=== PATIENT | female | born 2000 | race Caucasian/White ===

== ENCOUNTER 2023-09-14 23:46 | Inpatient (IN) ==
[2023-09-15 00:28] LABS: Basophils # (auto) 0.04 K/uL (0.00-0.20); Basophils % (auto) 0.4 %; Hematocrit (blood only) 39.9 % (37.0-47.0); Hemoglobin 13.6 g/dl (12.0-16.0); Immature Granulocytes # (auto) 0.04 K/uL (0.01-0.20); Immature Granulocytes % (auto) 0.4 %; Lymphocytes % (auto) 17.2 %; Mean Corpuscular Hemoglobin 30.1 pg (25.0-34.0); Mean Corpuscular Hgb Conc 34.1 g/dL (32.0-36.0); Mean Corpuscular Volume 88.3 fL (80.0-100.0); Mean Platelet Volume 11.4 fL (9.4-12.4); Monocytes # (auto) 0.69 K/uL (0.11-0.59); Neutrophils # (auto) 7.41 K/uL (1.40-6.50); Platelet Count 205 K/uL (130-400); RDW Coefficient of Variation 12.9 % (11.5-14.5); RDW Standard Deviation 41.8 fL (36.4-46.3); Red Blood Count 4.52 M/uL (4.20-5.40); White Blood Count 9.88 K/ul (4.8-10.8)
[2023-09-15 00:34] LABS: Appearance Urine Cloudy (Clear); Bacteria Urine Automated 1+ (Negative); Bilirubin Urine Negative (Negative); Blood Urine Negative (Negative); Color Urine Dark Yellow; Epithelial Cell Urine Auto >30 /lpf (0-5); Glucose Urine UA Negative (Negative); Ketones Urine 1+ (Negative); Leukocyte Esterase Urine Negative (Negative); Nitrite Urine Negative (Negative); Protein Urine 3+ (Negative); RBC Urine Automated 0-4 /hpf (0-4); Urobilinogen Urine Negative (Negative); pH Urine 5.5 (4.5-7.5)
--- NOTE | 2023-09-15 00:34 | Emergency Department Note ---
Impression & Plan Suicidal ideation, Homicidal ideation ED Provider Note NAME: PEDRO VILLASENOR AGE: 23 SEX: F : 2000 ARRIVES VIA: Walk-In INFORMANT: Patient, ED PROVIDER(S): Arcadio Stewart MD CHIEF COMPLAINT: Suicidal ideation/homicidal ideation HPI: This is a 23-year-old female presenting for SI/HI. Patient states that she feels that they are somewhat smarter in her head telling her what to do. She states she also has some fairly severe panic attacks where "where I am thinking becomes reality ". She states that for example she had a panic attack recently and almost jumped out of the car was moving. She then states that she had a intrusive thought where she saw a mother and child and want to stab them. She states they do not want to do this but that he has these thoughts. She is otherwise that she "survives on nicotine, alcohol and people ". She states that sometimes things do not feel real. She mentioned that her symptoms had worsened after taking LSD about 2 months ago. ROS: See above HPI for pertinent positives & negatives. A total of 10 systems reviewed and were otherwise negative. PAST MEDICAL HISTORY: See Below PAST SURGICAL HISTORY: See Below FAMILY HISTORY: See Below SOCIAL HISTORY: See Below HOME MEDICATIONS: See Below ALLERGIES: See Below VITALS: See Below PHYSICAL EXAMINATION: General: resting comfortably in no acute distress Head: Normocephalic and atraumatic Eyes: Normal inspection, extraocular muscles intact Ear, nose, throat: Normal external exam Neck: Normal range of motion Respiratory: No respiratory distress Cardiovascular: Regular rate/rhythm, no murmur GI: soft, nontender, no guarding or rebound Extremities: nontender, moves all extremities Neuro: The patient awake and alert Skin: Warm, dry, and intact MEDICAL DECISION MAKING: This is a 23-year-old female presents for SI/HI. Patient states she has passive thoughts of SI/HI but does not have any active wishes to or hurt people. She states she has thoughts which she does not want to act on. -Will do screening medical workup. -Screening workup is reassuring without clear abnormalities -Patient is by 3 S., accepted to their service Differential diagnosis: SI, HI, schizophrenia, bipolar, drug intoxication Past Med/Surg History Medical History (Updated 09/15/23 @ 07:19 by Arcadio Stewart MD) Acid reflux Anxiety Surgical History No significant past surgical history Family History Father No significant active problems Mother No significant active problems Other No family history of adverse response to anesthesia Denies family history of Crohn's disease Colorectal cancer Ulcerative colitis Social History Smoking Status: Current every day smoker Tobacco Type: Cigarettes Second Hand Exposure: No; Do You Dip or Chew Tobacco: No; Hx Alcohol Use: No Hx Substance Use: No Preferred Language: Portuguese Communication Ability: Effective 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: No Beliefs That Will Affect Care: None Current Living Situation: Family Current Living Situation Comment: mom Feels Safe at Home: Yes Childhood Exposure to Second-Hand Smoke: No Dental Care, Regularly: Yes Gender Identity: Female Assistive Devices: None Allergies Allergies Allergy/AdvReac Type Severity Reaction Status Date / Time No Known Allergies Allergy Verified 04/24/23 15:57 Home Meds Home Medications Medication Instructions Recorded Confirmed No Known Home Medications 09/15/23 09/15/23 Results & Data (ED) Vital Signs Vital Signs - 24 hr 09/14/23 23:50 Temperature 36.6 C Temperature Source Temporal Artery Scan Pulse Rate 69 Respiratory Rate 18 Respiratory Effort / Characteristics Non-Labored Respiratory Depth Normal Blood Pressure 144/84 H Blood Pressure Mean 104 Pulse Oximetry 99 Oxygen Delivery Method Room Air Sepsis Recent Fever Within 48 Hours No Sepsis New/Unexplained Change in Mental Status No Sepsis Action Taken by Nursing No Action Required Laboratory Data 09/15/23 00:08 09/15/23 00:08 Lab Results 09/15/23 09/15/23 09/15/23 Range/Units 00:05 00:08 00:15 WBC 9.88 (4.8-10.8) K/ul RBC 4.52 (4.20-5.40) M/uL Hgb 13.6 (12.0-16.0) g/dl Hct 39.9 (37.0-47.0) % MCV 88.3 (80.0-100.0) fL MCH 30.1 (25.0-34.0) pg MCHC 34.1 (32.0-36.0) g/dL RDW Std Deviation 41.8 (36.4-46.3) fL RDW Coeff of Stiven 12.9 (11.5-14.5) % Plt Count 205 (130-400) K/uL MPV 11.4 (9.4-12.4) fL Immature Gran % (Auto) 0.4 % Neut % (Auto) 75.0 % Lymph % (Auto) 17.2 % [place] % (Auto) 7.0 % Eos % (Auto) 0.0 % Baso % (Auto) 0.4 % Neut # (Auto) 7.41 H (1.40-6.50) K/uL Lymph # (Auto) 1.70 (1.20-3.40) K/uL [place] # (Auto) 0.69 H (0.11-0.59) K/uL Eos # (Auto) 0.00 (0.00-0.50) K/uL Baso # (Auto) 0.04 (0.00-0.20) K/uL Immature Gran # (Auto) 0.04 (0.01-0.20) K/uL Sodium 138 (136-145) mmol/L Potassium 3.6 (3.5-5.1) mmol/L Chloride 106 (98-107) mmol/L Carbon Dioxide 20 L (21-32) mmol/L Anion Gap 12 H (3-11) BUN 12 (6-23) mg/dl Creatinine 0.75 (0.6-1.2) mg/dl Est Cr Clr Drug Dosing 91.8 ml/min Est GFR ( Amer) 132.1 ml/min Est GFR (Non-Af Amer) 113.9 ml/min BUN/Creatinine Ratio 16.0 (10-20) Glucose 92 (70-99(Fasting)) mg/dl Calcium 9.4 (8.6-10.3) mg/dl Total Bilirubin 0.6 (0.2-1.0) mg/dl AST 15 (13-39) U/L ALT 10 (7-52) U/L Alkaline Phosphatase 82 (34-104) U/L Total Protein 8.3 (6.0-8.3) gm/dl Albumin 4.8 (3.4-5.0) gm/dl Globulin 3.5 (2.5-4.0) gm/dl Albumin/Globulin Ratio 1.4 (0.9-2) TSH 1.597 (0.300-4.500) uIu/ml Urine Color Dark Yellow Urine Appearance Cloudy A (Clear) Urine pH 5.5 (4.5-7.5) Ur Specific [place] 1.030 (1.000-1.030) Urine Protein 3+ H (Negative) Urine Glucose (UA) Negative (Negative) Urine Ketones 1+ H (Negative) Urine Blood Negative (Negative) Urine Nitrite Negative (Negative) Urine Bilirubin Negative (Negative) Urine Urobilinogen Negative (Negative) Ur Leukocyte Esterase Negative (Negative) Urine WBC (Auto) 1-5 (0-5) /hpf Urine RBC (Auto) 0-4 (0-4) /hpf U Hyaline Cast (Auto) 10-30 H (0-5) /lpf U Epithel Cells (Auto) >30 H (0-5) /lpf Urine Bacteria (Auto) 1+ H (Negative) Ur Renal Epithelial Cell Not Reportable Urine Crystals Not Reportable Calcium Oxalate Crystal Present A (None Prsent) Urine Mucus Present A (None Prsent) Urine Test Negative (Negative) Salicylates < 3.0 L (3.0-30) mg/dl Urine Opiates Screen Neg (Neg) Ur Methadone, Qual Neg (Neg) Acetaminophen < 3 L (10-30) ug/ml Urine Barbiturates Neg (Neg) Ur Phencyclidine (PCP) Neg (Neg) U Amphetamin/Meth Scrn Neg (Neg) MDMA (Ecstasy) Screen Neg (Neg) U Benzodiazepines Scrn Neg (Neg) Ur Cocaine Metabolite Neg (Neg) U Marijuana (THC) Screen Pos H (Neg) Ethyl Alcohol mg/dL < 10.0 (<10.0) mg/dl SARS-CoV-2, RNA, NAAT NEGATIVE (NEGATIVE) Discharge Plan Visit Data Chief Complaint: Mental Health Evaluation Stated Complaint: MENTAL HEALTH ED Provider: Arcadio Stewart Discharge Problem: Suicidal ideation, Homicidal ideation Patient Disposition: Admitted As Inpatient Discharge Instructions Interventions: ED Discharge Assessment Last Done: 09/15/23 05:17
[2023-09-15 00:52] LABS: Albumin Globulin Ratio 1.4 (0.9-2); Albumin Level 4.8 gm/dl (3.4-5.0); Bilirubin,Total 0.6 mg/dl (0.2-1.0); Calcium 9.4 mg/dl (8.6-10.3); Creatinine Clr Calc Pharmacy 91.8 ml/min; Est GFR (African American) 132.1 ml/min; Est GFR (Non-African American) 113.9 ml/min; Globulin 3.5 gm/dl (2.5-4.0); Potassium 3.6 mmol/L (3.5-5.1); Total Protein 8.3 gm/dl (6.0-8.3)
[2023-09-15 00:54] LABS: Calcium Oxalate Crystals Urine Present (None Prsent); Mucus Urine Present (None Prsent)
[2023-09-15 00:56] LABS: Acetaminophen < 3 ug/ml (10-30); Salicylate < 3.0 mg/dl (3.0-30)
[2023-09-15 01:07] LABS: Amphetamines+Metham, Urine Neg (Neg); Barbiturates, Urine Neg (Neg); Benzodiazepine, Urine Neg (Neg); Cocaine, Urine Neg (Neg); MDMA (Ecstacy), Urine Neg (Neg); Marijuana, Urine Pos (Neg); Methadone, Urine Neg (Neg); Opiate, Urine Neg (Neg); Phencyclidine, Urine Neg (Neg)
[2023-09-15 01:07] LABS: Thyroid Stimulating Hormone 1.597 uIu/ml (0.300-4.500)
[2023-09-15 03:59] LABS: Pregnancy Test, Urine Negative (Negative)
[2023-09-15] MEDS ORDERED: MAGNESIUM HYDROXIDE SUSP 30 ML UDC PO PRN (05:34)
[2023-09-15] MEDS ORDERED: ALUMINUM/MAGNESIUM SUSP 30 ML UDC PO PRN (05:34)
[2023-09-15] MEDS ORDERED: ACETAMINOPHEN 325 MG TAB PO PRN (05:34)
[2023-09-15] MEDS ORDERED: hydrOXYzine HCl 25 MG TAB PO PRN (05:34)
[2023-09-15] MEDS ORDERED: SODIUM CHLORIDE 0.65% NA SOLN 45 ML (OCEAN) PRN (05:34)
[2023-09-15] MEDS ORDERED: BISMUTH SUBSALICYLATE LIQD 236 ML PO PRN (05:34)
--- NOTE | 2023-09-15 14:35 | History & Physical ---
Date of Service September 15, 2023 Impression / Recommendations (1) Borderline personality disorder: Patient is now calmer. She appears to have been in a borderline episode on presentation and it is also possible that she had been using some substance that does not show up on a drug screen. She knows that treatment for BPD is primarily therapy rather than medication. She has been on anti-depressants before and says they don't work. (2) Suicidal ideation: Patient has been admitted and will be observed. At the time of my interview today she denied suicidal ideation. Plan Continue to encourage her to participate in the milieu to learn coping skills. No medications at this time. Patient prefers not to take medications. Suicide Risk Level Suicide Risk Level: Low (q15 min observation checks) Risk Factors Assessment : Yes Mental Health Diagnoses: Yes Substance Use Disorders: Yes Previous Psychiatric Hospitalization: Yes Hopelessness: Yes Protective Factors Assessment Employed: No Psychiatric History Identifying Data PEDRO VILLASENOR is a 23-year-old F who currently lives in uncertain living situations. She has a history of depression and suicidal ideations, and was admitted on 09/15/23 04:54 on a 201 voluntary for suicidal ideations. Chief Complaint "I hate myself". History of Present Illness Patient is a 23 year old female with past psychiatric history of depression, suicidal ideation and a history of self harm who presented to the hospital after having a crisis and stating that she had suicidal ideations. She was admitted to the unit and I interviewed her in her room in the afternoon. Reportedly the patient had been unable to sleep most of the night which was why she was allowed to sleep during the day. Now that I have spoken to her, I am suspicious that she may have been under the influence of some type of substance: The crisis note described her as very disorganized, paranoid, and possibly delusional. She has admitted to using schrooms in the past and these, along with other drugs, are not in the typical drug screen. When I interviewed her this afternoon, she was labile but very redirectable. Much more in line with a borderline emotional episode than bryson or psychosis. She denied suicidal or homicidal ideation and didn't voice any bizarre or paranoid ideas. She was definitely not manic nor responding to internal stimuli. She discussed having intense feelings of abandonment due to her father leaving the family when she was [age] years old. She does have a history of cutting, though she states that she was not trying to kill herself and only learned to cut by copying other people. We discussed Borderline Personality disorder and she believes that this diagnosis likely applies to her. We discussed medications and she stated that "none of them work for me". So I am not going to start her on any medications at this time. We had a good discussion about therapy being the mainstay of treatment for borderline personality disorder. Past Psychiatric History Current Psychiatric Diagnosis: MDD Outpatient Services: Patient denies any current outpatient treatment. Previous Psych Admissions: One previous psychiatric hospitalization approximately a year ago. History of Previous Suicide Attempt: No Past Medication Trials: reportedly she has tried several SSRIs as well as Zyprexa. She stopped these medications some time ago and has not been taking anything recently. Allergies Allergy/AdvReac Type Severity Reaction Status Date / Time No Known Allergies Allergy Verified 04/24/23 15:57 Home Medications Medication Instructions Recorded Confirmed Type No Known Home Medications 09/15/23 09/15/23 History Family History Family History of: Doesn't Know Alcohol History Hx of Alcohol Use Over the Past 12 Months: Yes AUDIT Total Score: 6 Smoking Use Have You Smoked or Used Tobacco Products in the Last 30 Days: Yes tobacco type: e-cigarettes Smoking Status: Current every day smoker Substance History Hx of Prescription Med Misuse Over the Past 12 Months: No Hx of Over the Counter Med Misuse Over the Past 12 Months: No Hx of Inhalent Misuse Over the Past 12 Months: No Hx of Organic Substance Use Over the Past 12 Months: No Hx of Illegal Substances/Street Drug Use Over Past 12 Months: Yes (acid - two months ago, she also admits to using shrooms) Problems as a Result of Past Substance Use: Other Problems as a Result of Past Substance Use Comments: worsening mental health Personal History Living Arrangements: Home Childhood: She states that her father left her and her mother when she was [age] years old. She says she has fear of abandonment because of this. She blames herself for her father leaving and tried to be perfect all the time. Beliefs That Will Affect Care: None Patient History Medical History (Updated 09/15/23 @ 15:25 by Sindhu Gracia DO) Acid reflux Anxiety Surgical History No significant past surgical history Family History Father No significant active problems Mother No significant active problems Other No family history of adverse response to anesthesia Denies family history of Crohn's disease Colorectal cancer Ulcerative colitis Social History Smoking Status: Current every day smoker Tobacco Type: Cigarettes Second Hand Exposure: No; Do You Dip or Chew Tobacco: No; Hx Alcohol Use: No Hx Substance Use: No Preferred Language: Mauritian Communication Ability: Effective Associate Professor Of Law Required: No Beliefs That Will Affect Care: None Current Living Situation: Family Current Living Situation Comment: mom Feels Safe at Home: Yes Childhood Exposure to Second-Hand Smoke: No Dental Care, Regularly: Yes Gender Identity: Female Assistive Devices: None Physical Exam Psychiatric: Orientation: alert and oriented x 3 Apperance: appropriately dressed, + disheveled and appeared stated age Eye Contact: good eye contact Motor Behavior: steady gait and station and no abnormal motor movements Speech: normal rate/rhythm/volume of speech Affect: + depressed affect, + anxious affect, + tearful affect and + labile affect Mood: + dysphoric mood Thought Process: + circumstantial thought process and + tangential thought process Thought Content: + preoccupation, + obsessions, + cognitive distortions, + hopelessness, + worthlessness, + guilt and + self deprecation Suicidal Thoughts: denies suicidal thoughts, denies suicidal plan and denies suicidal intent Homicidal Thoughts: + reports homicidal thoughts, + reports homicidal plan and + reports homicidal intent Hallucinations: no auditory hallucinations and no visual hallucinations Cognition: recent memory grossly intact, remote memory grossly intact, attention grossly intact and language grossly intact Estimated Intelligence: average estimated intelligence Insight: good insight Judgment: + poor judgement Vital Signs (Past 24 Hours): Last Vital Signs Temp 37.0 C 09/15/23 05:57 Pulse 63 09/15/23 05:57 Resp 20 09/15/23 05:57 BP 113/68 09/15/23 05:57 Pulse Ox 98 09/15/23 05:57 O2 Del Method Room Air 09/15/23 05:57 Physical Examination: A physical exam was performed in the ER prior to admission to the unit by Arcadio Stewart I accept that physical as correct/medical clearance for the inpatient physical exam. Results & Data ([facility]) Laboratory Results Laboratory Results - last 24 hr 09/15/23 09/15/23 09/15/23 00:05 00:08 00:15 WBC 9.88 RBC 4.52 Hgb 13.6 Hct 39.9 MCV 88.3 MCH 30.1 MCHC 34.1 RDW Std Deviation 41.8 RDW Coeff of Stiven 12.9 Plt Count 205 MPV 11.4 Immature Gran % (Auto) 0.4 Neut % (Auto) 75.0 Lymph % (Auto) 17.2 [place] % (Auto) 7.0 Eos % (Auto) 0.0 Baso % (Auto) 0.4 Neut # (Auto) 7.41 H Lymph # (Auto) 1.70 [place] # (Auto) 0.69 H Eos # (Auto) 0.00 Baso # (Auto) 0.04 Immature Gran # (Auto) 0.04 Sodium 138 Potassium 3.6 Chloride 106 Carbon Dioxide 20 L Anion Gap 12 H BUN 12 Creatinine 0.75 Est Cr Clr Drug Dosing 91.8 Est GFR ( Amer) 132.1 Est GFR (Non-Af Amer) 113.9 BUN/Creatinine Ratio 16.0 Glucose 92 Calcium 9.4 Total Bilirubin 0.6 AST 15 ALT 10 Alkaline Phosphatase 82 Total Protein 8.3 Albumin 4.8 Globulin 3.5 Albumin/Globulin Ratio 1.4 TSH 1.597 Urine Color Dark Yellow Urine Appearance Cloudy A Urine pH 5.5 Ur Specific [place] 1.030 Urine Protein 3+ H Urine Glucose (UA) Negative Urine Ketones 1+ H Urine Blood Negative Urine Nitrite Negative Urine Bilirubin Negative Urine Urobilinogen Negative Ur Leukocyte Esterase Negative Urine WBC (Auto) 1-5 Urine RBC (Auto) 0-4 U Hyaline Cast (Auto) 10-30 H U Epithel Cells (Auto) >30 H Urine Bacteria (Auto) 1+ H Ur Renal Epithelial Cell Not Reportable Urine Crystals Not Reportable Calcium Oxalate Crystal Present A Urine Mucus Present A Urine Test Negative Salicylates < 3.0 L Urine Opiates Screen Neg Ur Methadone, Qual Neg Acetaminophen < 3 L Urine Barbiturates Neg Ur Phencyclidine (PCP) Neg U Amphetamin/Meth Scrn Neg MDMA (Ecstasy) Screen Neg U Benzodiazepines Scrn Neg Ur Cocaine Metabolite Neg U Marijuana (THC) Screen Pos H U Marijuana THC Carboxy Pending Drug Screen Comment Pending Ethyl Alcohol mg/dL < 10.0 SARS-CoV-2, RNA, NAAT NEGATIVE Current Inpatient Medications Current Inpatient Medications: Current Inpatient Medications Acetaminophen (Acetaminophen 325 Mg Tab) 650 mg PO Q4H PRN PRN Reason: Headache or Minor Fever Stop: 10/15/23 05:33 Al Hydrox/Mg Hydrox/Simethicone (Aluminum/Magnesium Susp 30 Ml Udc) 30 ml PO Q4H PRN PRN Reason: GI Upset Stop: 10/15/23 05:33 Bismuth Subsalicylate (Bismuth Subsalicylate Liqd 236 Ml) 15 ml PO PRN PRN PRN Reason: Loose Stool Stop: 10/15/23 05:33 Hydroxyzine HCl (Hydroxyzine Hcl 25 Mg Tab) 50 mg PO HSZ PRN PRN Reason: Insomnia Stop: 10/15/23 05:33 Hydroxyzine HCl (Hydroxyzine Hcl 25 Mg Tab) 25 mg PO Q4H PRN PRN Reason: Anxiety Stop: 10/15/23 05:33 Magnesium Hydroxide (Magnesium Hydroxide Susp 30 Ml Udc) 30 ml PO DAILY PRN PRN Reason: Constipation Stop: 10/15/23 05:33 Sodium Chloride (Sodium Chloride 0.65% Na Soln 45 Ml ([place])) 1 - 2 sprays NA PRN PRN PRN Reason: Nasal Dryness/Congestion Stop: 10/15/23 05:33
[2023-09-15] MEDS: hydrOXYzine HCl 25 MG TAB PO PRN (22:31)
--- NOTE | 2023-09-16 14:30 | Psychiatric Progress Note ---
Date of Service September 16, 2023 Impression / Recommendations (1) Borderline personality disorder: Patient is now calmer. She appears to have been in a borderline episode on presentation and it is also possible that she had been using some substance that does not show up on a drug screen. She knows that treatment for BPD is primarily therapy rather than medication. She has been on anti-depressants before and says they don't work. (2) Suicidal ideation: Patient has been admitted and will be observed. At the time of my interview today she denied suicidal ideation. Plan Continue to encourage her to participate in the milieu to learn coping skills. No medications at this time. Patient prefers not to take medications. 09/16/23: The patient continues to deny suicidal ideation. She is doing well but would benefit from more participation in the milieu. She knows that therapy is the mainstay of her treatment for Borderline Personality Disorder. Suicide Risk Level Suicide Risk Level: Low (q15 min observation checks) Risk Factors Assessment : Yes Do You Have Access To A Gun?: Yes (Roommates have guns locked up) Mental Health Diagnoses: Yes Substance Use Disorders: Yes Previous Psychiatric Hospitalization: Yes Hopelessness: Yes Protective Factors Assessment Employed: No Interval History Chief Complaint "I don't like groups". Review of Systems Sleep Information Total Hours of Sleep: 4.5 Sleep Comments: pt received vistaril prn x 2 for insomnia. verbalized "I didn't sleep at all." Meal Information Percent Meal Consumed - Breakfast: 0 Percent Meal Consumed - Lunch: 80 Percent Meal Consumed - Dinner: 50 Nutrition Comment: Patient appears to be awake, but did not come out for dinner. Subjective Subjective Patient was seen & assessed and interval progress reviewed with the treatment team, nursing and social work. She continues to do well while here in the unit though she is attention seeking and not particularly compliant with the milieu. At the time of the interview, the patient denied suicidal ideation and showed no signs of depression, bryson or psychosis. I encouraged her to participate more in the milieu, despite her saying that she doesn't do well in groups. I pointed out that she needed to try something new rather than using her current coping skills that are maladaptive. Physical Exam Psychiatric Orientation: alert and oriented x 3 Apperance: appropriately dressed and appeared stated age Eye Contact: good eye contact Motor Behavior: steady gait and station and no abnormal motor movements Speech: normal rate/rhythm/volume of speech Affect: + labile affect Mood: + dysphoric mood Thought Process: + circumstantial thought process and + tangential thought process Thought Content: + preoccupation, + cognitive distortions, + hopelessness, + worthlessness, + guilt and + self deprecation Suicidal Thoughts: denies suicidal thoughts, denies suicidal plan and denies suicidal intent Homicidal Thoughts: denies homicidal thoughts, denies homicidal plan and denies homicidal intent Hallucinations: no auditory hallucinations and no visual hallucinations Cognition: recent memory grossly intact, remote memory grossly intact, attention grossly intact and language grossly intact Estimated Intelligence: average estimated intelligence Insight: good insight Judgment: + poor judgement Vital Signs (Past 24 Hours) Last Vital Signs Temp 37.1 C 09/16/23 06:31 Pulse 103 H 09/16/23 06:32 Resp 16 09/16/23 06:31 BP 114/76 09/16/23 06:32 Pulse Ox 98 09/15/23 05:57 O2 Del Method Room Air 09/15/23 05:57 A physical exam was performed in the ER prior to admission to the unit by Arcadio Stewart. I accept that physical as correct/medical clearance for the inpatient physical exam. Results & Data ([facility]) Current Inpatient Medications Current Inpatient Medications: Current Inpatient Medications Acetaminophen (Acetaminophen 325 Mg Tab) 650 mg PO Q4H PRN PRN Reason: Headache or Minor Fever Stop: 10/15/23 05:33 Al Hydrox/Mg Hydrox/Simethicone (Aluminum/Magnesium Susp 30 Ml Udc) 30 ml PO Q4H PRN PRN Reason: GI Upset Stop: 10/15/23 05:33 Bismuth Subsalicylate (Bismuth Subsalicylate Liqd 236 Ml) 15 ml PO PRN PRN PRN Reason: Loose Stool Stop: 10/15/23 05:33 Hydroxyzine HCl (Hydroxyzine Hcl 25 Mg Tab) 50 mg PO HSZ PRN PRN Reason: Insomnia Stop: 10/15/23 05:33 Last Admin: 09/15/23 23:33 Dose: 50 mg Hydroxyzine HCl (Hydroxyzine Hcl 25 Mg Tab) 25 mg PO Q4H PRN PRN Reason: Anxiety Stop: 10/15/23 05:33 Magnesium Hydroxide (Magnesium Hydroxide Susp 30 Ml Udc) 30 ml PO DAILY PRN PRN Reason: Constipation Stop: 10/15/23 05:33 Sodium Chloride (Sodium Chloride 0.65% Na Soln 45 Ml ([place])) 1 - 2 sprays NA PRN PRN PRN Reason: Nasal Dryness/Congestion Stop: 10/15/23 05:33 Mental Health & Subst Abuse Tx Therapist Name of Therapist: MARTINE Real Estate Professional Name of Real Estate Professional: MARTINE Post Discharge Appointments Primary Care Physician Name Of Family Doctor/PCP: Dr. Martha Perdomo ([email or web address])
--- NOTE | 2023-09-17 14:25 | Discharge Summary ---
Date of Service September 17, 2023 History of Present Illness Patient is a 23 year old female with past psychiatric history of depression, suicidal ideation and a history of self harm who presented to the hospital after having a crisis and stating that she had suicidal ideations. She was admitted to the unit and I interviewed her in her room in the afternoon. Reportedly the patient had been unable to sleep most of the night which was why she was allowed to sleep during the day. Now that I have spoken to her, I am suspicious that she may have been under the influence of some type of substance: The crisis note described her as very disorganized, paranoid, and possibly delusional. She has admitted to using schrooms in the past and these, along with other drugs, are not in the typical drug screen. When I interviewed her this afternoon, she was labile but very redirectable. Much more in line with a borderline emotional episode than bryson or psychosis. She denied suicidal or homicidal ideation and didn't voice any bizarre or paranoid ideas. She was definitely not manic nor responding to internal stimuli. She discussed having intense feelings of abandonment due to her father leaving the family when she was [age] years old. She does have a history of cutting, though she states that she was not trying to kill herself and only learned to cut by copying other people. We discussed Borderline Personality disorder and she believes that this diagnosis likely applies to her. We discussed medications and she stated that "none of them work for me". So I am not going to start her on any medications at this time. We had a good discussion about therapy being the mainstay of treatment for borderline personality disorder. Physical Exam Vital Signs (Past 24 Hours) Last Vital Signs Temp 37 C 09/17/23 13:24 Pulse 63 09/17/23 13:24 Resp 16 09/17/23 13:24 BP 113/68 09/17/23 13:24 Pulse Ox 98 09/17/23 13:24 O2 Del Method Room Air 09/15/23 05:57 A physical exam was performed in the ER prior to admission to the unit by Arcadio Stewart. I accept that physical as correct/medical clearance for the inpatient physical exam. Principal Diagnosis Borderline Personality disorder Psychiatric Data See daily stay summary. In short, safety was maintained and the patient was cooperative with care. Patient stated that she did not want to be on medications so none were prescribed. Her issues are mainly behavioral and are best adressed by therapy. A family session was held and safety plan was completed prior to discharge. Day of Discharge Assessment Today the patient voices readiness for discharge. They note improvement in mood and deny thoughts to harm self or others. Thoughts remain organized and they are improved from admission. There is no evidence of psychosis. They agree to keep follow-up appointments. They are stable for discharge to outpatient level of care. Transition of Care Transition Of Care Record: was reviewed with the patient Advance Directives Advance Directives Information Provided: Yes Advance Directives: No Mental Health Advance Directive: No Advance Directives on File: No Living Will: No Power of Service Station Equipment Mechanic: No Advance Directives Reason:: Declines as Mental Health Visit. Suicide Risk Level Suicide Risk Level Comments: Patient continued to deny suicidal ideation all the time while she was here. She appeared to want to remain in the unit rather than be responsible for herself so she continuously voiced new complaints but she was not psychotic or manic and did not pose a danger to self or others. She seemed to be engaging in manipulative behavior for some type of secondary gain. When she was getting her way, she was reasonable, pleasant and cooperative. Risk Factors Assessment : Yes Do You Have Access To A Gun?: Yes (Roommates have guns locked up) Mental Health Diagnoses: Yes Substance Use Disorders: Yes Previous Psychiatric Hospitalization: Yes Hopelessness: Yes Protective Factors Assessment Employed: No Antipsychotic Medications no medications prescribed because the patient refused and none were indicated Discharge Data Lab Results 09/15/23 09/15/23 09/15/23 00:05 00:08 00:15 WBC 9.88 RBC 4.52 Hgb 13.6 Hct 39.9 MCV 88.3 MCH 30.1 MCHC 34.1 RDW Std Deviation 41.8 RDW Coeff of Stiven 12.9 Plt Count 205 MPV 11.4 Immature Gran % (Auto) 0.4 Neut % (Auto) 75.0 Lymph % (Auto) 17.2 [place] % (Auto) 7.0 Eos % (Auto) 0.0 Baso % (Auto) 0.4 Neut # (Auto) 7.41 H Lymph # (Auto) 1.70 [place] # (Auto) 0.69 H Eos # (Auto) 0.00 Baso # (Auto) 0.04 Immature Gran # (Auto) 0.04 Sodium 138 Potassium 3.6 Chloride 106 Carbon Dioxide 20 L Anion Gap 12 H BUN 12 Creatinine 0.75 Est Cr Clr Drug Dosing 91.8 Est GFR ( Amer) 132.1 Est GFR (Non-Af Amer) 113.9 BUN/Creatinine Ratio 16.0 Glucose 92 Calcium 9.4 Total Bilirubin 0.6 AST 15 ALT 10 Alkaline Phosphatase 82 Total Protein 8.3 Albumin 4.8 Globulin 3.5 Albumin/Globulin Ratio 1.4 TSH 1.597 Urine Color Dark Yellow Urine Appearance Cloudy A Urine pH 5.5 Ur Specific [place] 1.030 Urine Protein 3+ H Urine Glucose (UA) Negative Urine Ketones 1+ H Urine Blood Negative Urine Nitrite Negative Urine Bilirubin Negative Urine Urobilinogen Negative Ur Leukocyte Esterase Negative Urine WBC (Auto) 1-5 Urine RBC (Auto) 0-4 U Hyaline Cast (Auto) 10-30 H U Epithel Cells (Auto) >30 H Urine Bacteria (Auto) 1+ H Ur Renal Epithelial Cell Not Reportable Urine Crystals Not Reportable Calcium Oxalate Crystal Present A Urine Mucus Present A Urine Test Negative Salicylates < 3.0 L Urine Opiates Screen Neg Ur Methadone, Qual Neg Acetaminophen < 3 L Urine Barbiturates Neg Ur Phencyclidine (PCP) Neg U Amphetamin/Meth Scrn Neg MDMA (Ecstasy) Screen Neg U Benzodiazepines Scrn Neg Ur Cocaine Metabolite Neg U Marijuana (THC) Screen Pos H Ethyl Alcohol mg/dL < 10.0 SARS-CoV-2, RNA, NAAT NEGATIVE Hospital Course (1) Borderline personality disorder: Plan Patient was admitted after presenting disorganized and displaying emotional lability. She was stabilized though declined to take any medications. It became apparent that most of her issues were behavioral or maybe secondary to her use of hallucinogens. The patient was only superficially cooperative with the treatment and the milieu so it was decided that after two days of stay that she was no longer a danger to herself or others and no longer met criteria for inpatient psychiatric hospitalization. A family meeting was held and she was discharged home to continue her treatment as an outpatient. At the time of discharged, she denied suicidal or homicidal ideation and showed no signs of bryson or psychosis. She is appropriate to follow up with further treatment as an outpatient. Mental Health & Subst Abuse Tx Therapist Name of Therapist: [facility] - on waitlist Therapist's Time of Therapist Appointment: Please call to follow up in 1-2 weeks. Therapy Appointment Comment: [address] [facility], [address], [place] [address] Therapist Release of Information: Obtained, Reviewed and Signed Mend Worker Name of Mend Worker: MARTINE Post Discharge Appointments Primary Care Physician Name Of Family Doctor/PCP: Dr. Martha Perdomo (peds) Primary Care Time of Appointment with PCP: Please follow up with primary care as needed. Provider Appointment Comment: [address] [facility] [address] Contact Information Discharge Discharge [address]: [address] [place] [address] Discharge Plan Discharge Items Patient Disposition: Home - Self-Care Reason For Visit: MAJOR DEPRESSIVE DISORDER Discharge Diagnosis: Borderline Personality disorder Activity: Resume your previous activity Non-emergency contact: Primary Care Provider Call non-emergency contact if: your symptoms worsen Follow-up/Referrals: Kelly Thomas MD [Primary Care Provider] - Diet: Regular Addtl Attending Provider Instructions: SPECIAL CARE INSTRUCTIONS: 1. Follow through with your scheduled aftercare appointments. If unable to keep an appointment, please call to reschedule. 2. Take your medication only as prescribed. Medication should not be changed or stopped without the approval of your doctor. In the event of worsening symptoms or concerns about side effects, contact your doctor immediately. 3. Utilize new healthy coping skills, anger management skills, and stress management skills learned during your hospitalization. Journal feelings and process them with a support person. Identify stressors or situations that may result in relapse, deterioration or inappropriate behaviors and develop a plan to deal with those issues. 4. If your coping skills are ineffective and you are in crisis, contact your outpatient providers for direction. If unable to reach your providers, please call the [facility] CRISIS LINE AT , go to the [facility] walk-in center at [address] [facility], [address], [place], or go to the closest Emergency Room. 5. Avoid alcohol and un-prescribed drugs. 6. You have been provided with the Mental Health Advance Directives Pamphlet for your review. 7. Your condition is stable for discharge to outpatient level of care, but recovery is an ongoing process. Ifthoughts to harm yourself or others return, follow the safety plan developed during your stay. Planning for a safe return home includes securing weapons. Our treatment team recommends weaponsbe removed from the home until your outpatient provider reassesses your progress. In rare cases where the items themselvescannot be removed, guns and ammunitionshould be secured separatelyand keys stored by a reliable personoutside of the home. If you were admitted on an involuntary commitment, the police or other legal authorities may be involved in this process. AFTERCARE APPOINTMENTS: * Please call your insurance company prior to your scheduled appointment to confirm your aftercare providers are covered. Take your insurance information to your appointments. WHO TO CALL AND WHEN: Medical Emergencies: For questions or emergencies related to your hospital stay, please contact the Inpatient Behavioral Health Unit at [phone]. A menswear salesperson is on-call 28/01 for the Behavioral Health Unit for emergencies At any time you feel your situation is an emergency, you may also call 911 immediately. Pending Studies at Discharge: No Stand-Alone Forms: [facility], Smoking Cessation Medications and DC Order Prescriptions: No Action No Known Home Medications Discharge Orders: Discharge Order (Routine); Ordered 09/17/23 Ordered By: Sindhu Gracia Admission Data Admit Date/Time: 09/15/23 04:54 Attending Provider: Sindhu Gracia Admit Provider: Sindhu Gracia Primary Care Provider: Kelly Thomas Other Interventions: Discharge Summary Assessment (RN) Last Done: 09/17/23 13:24 PSY Interdisciplinary Discharge Planning Last Done: 09/17/23 13:33 [place] [address] D/C day mgmt > 30 min Patient Type Established History Expanded Problem Focused Exam Expanded Problem Focused Medical Decision Making Moderate Complexity Diagnoses Borderline personality disorder F60.3 Time Spent (min) 45
[2023-09-19 11:37] LABS: Marijuana Quant, GCMS Urine 572 ng/mL (<5)
== END 2023-09-17 13:50 | disposition home or self-care (01) | DRG 883 ==
LOC: ED 23:46 → 3S 09-15 04:54